=== PATIENT | male | born 1990 | race Caucasian/White ===

== ENCOUNTER 2023-04-25 12:01 | Emergency (ER) | payer OTHER ==
[~2023-04-25] VITALS: Ht 175.3 cm; Wt 107.6 kg
[2023-04-25] MEDS ORDERED: BACT800T5 PO (13:01)
[2023-04-25 13:13] VITALS: BP 127/70; TEMP 96.9; O2SAT 99
== END 2023-04-25 13:14 | disposition home or self-care (01) ==
LOC: M ED 12:01
DX: L03.114 Cellulitis of left upper limb (principal)